=== PATIENT | female | born 1990 | race Hispanic/Latino ===

== ENCOUNTER 2020-10-28 22:32 | Inpatient (IN) | payer OTHER ==
[~2020-10-28] VITALS: Ht 149.9 cm; Wt 76.1 kg
[2020-10-28 22:48] VITALS: BP 143/103
[2020-10-28] MEDS ORDERED: PRENTAB9 PO (22:55)
[2020-10-28 23:13] VITALS: BP 143/105
[2020-10-28] MEDS ORDERED: OXYTOCIN DRIP 30 UNITS in IV 1 EA IV PRN (23:15)
[2020-10-28] MEDS ORDERED: CARBOPROST TROMETHAMINE 250 MCG/ML AMP IM PRN (23:15)
[2020-10-28] MEDS ORDERED: BUTORPHANOL 2 MG/ML INJ (J0595) IV PRN (23:15)
[2020-10-28] MEDS ORDERED: LIDOCAINE 1% MDV 20ML VIAL INFIL PRN (23:15)
[2020-10-28] MEDS ORDERED: LR 1,000 ML IV SCH (23:15)
[2020-10-28] MEDS ORDERED: TRANEXAMIC ACID INJection 1,000 MG in NS 100 ML IV PRN (23:15)
[2020-10-28] MEDS ORDERED: PROMETHAZINE INJ 25 MG/ML VIAL (J2550) IV PRN (23:15)
[2020-10-28 23:25] LABS: HEMATOCRIT 36.3 % (36.0-47.0); HEMOGLOBIN 12.5 g/dl (12.0-15.5); MEAN CORPUSCULAR HEMOGLOBIN 30.4 pg (27.0-33.0); MEAN CORPUSCULAR HGB CONC 34.4 g/dl (32.0-36.5); MEAN CORPUSCULAR VOLUME 88.3 fl (80.0-96.0); PLATELET COUNT, AUTOMATED 234 10^3/uL (150-450); RED BLOOD COUNT 4.11 10^6/uL (4.00-5.40); WHITE BLOOD COUNT 5.6 10^3/uL (4.0-10.0)
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
--- NOTE | 2020-10-29 01:35 | IPNPDOC ---
Obstetrical Progress Note Date of Service Oct 29, 2020 Subjective 30yo at 40w5d by 1 US, admitted in labor. Declining epidural for pain management. S/p 1 dose IV pain meds. Objective Vital Signs Date Time Temp Pulse Resp B/P (MAP) Pulse Ox O2 Delivery O2 Flow Rate FiO2 10/29/20 00:27 18 10/28/20 23:38 20 10/28/20 23:13 92 143/105 (118) 10/28/20 22:48 98 18 143/103 (116) Laboratory Tests 10/28/20 23:19: White Blood Count 5.6, Red Blood Count 4.11, Hemoglobin 12.5, Hematocrit 36.3, Mean Corpuscular Volume 88.3, Mean Corpuscular Hemoglobin 30.4, Mean Corpuscular Hemoglobin Concent 34.4, Red Cell Distribution Width 12.2, Platelet Count 234, Nucleated Red Blood Cells % (auto) 0.0, Syphilis Serology [Pending] Current Medications Medications (Trade) Dose Ordered Sig/Wili Route PRN Reason Start Time Stop Time Status Last Admin Dose Admin Butorphanol Tartrate (Stadol) 2 mg Q4HP PRN IV CONTRACTION 10/28/20 23:15 10/28/20 23:38 2 MG Promethazine HCl (PHENERGAN INJection) 12.5 mg Q4HP PRN IV CONTRACTION PAIN 10/28/20 23:15 10/28/20 23:38 12.5 MG Assessment Heart Rate (FHR): 130 (mod variability, +accels, no decels) Heart Rate Tracing: Category I Tocometer Contractions: Yes Frequency: regular, every 1-3 min. Duration: less than 60 seconds Strength: palpated as strong Sterile Vaginal Examination Dilation: 9 cm Effacement (%): 100% Station: 0 Assessment and Plan Status: Reassuring Group B Streptococcus: Negative Additional Comments 30yo at 40w5d in active labor -Continues to decline epidural for pain management. SVE ant lip/100/0, offered AROM - pt in agreement with plan. AROM at 0125, clear fluid noted. Continue expectant management, anticipate vaginal delivery. FABIENNE TORRES M.D. Oct 29, 2020 01:35
[2020-10-29] MEDS ORDERED: DIBUCAINE 1% OINTMENT 30GM TOP PRN (03:00)
[2020-10-29] MEDS ORDERED: DOCUSATE SODIUM 100MG CAPSULE PO PRN (03:00)
[2020-10-29] MEDS ORDERED: MEASLES,MUMPS,RUBELLA VACCINE INJ (MMR-II) (90707) SC SCH (03:00)
[2020-10-29] MEDS ORDERED: METHYLERGONOVINE MALEATE 0.2 MG TAB PO PRN (03:00)
[2020-10-29] MEDS ORDERED: ACETAMINOPHEN TAB 650MG DOSE (2X325MG) PO PRN (03:00)
--- NOTE | 2020-10-29 03:09 | DNPDOC ---
[facility] Delivery Note Delivery Note DATE OF DELIVERY: 10/29/2020 PREDELIVERY DIAGNOSIS: 40weeks 5 days gestation POST DELIVERY DIAGNOSIS: Delivered. PROCEDURE: Spontaneous vaginal delivery LAN/WAN ENGINEER: Dr. Torres ANESTHESIA: None ESTIMATED BLOOD LOSS: 100 mL. FINDINGS: 7 pound 5 ounce female , Score 9/9 DELIVERY SUMMARY: Patient is a 30-year-old 3 now para 2011 who was admitted to labor and delivery for active labor. AROM was performed at 8cm with clear fluid noted, pt progressed to complete with head at the perineum. With excellent pushing effort, head delivered AMBROSIO and restituted to LOT. Anterior shoulder then delivered without difficulty, followed by remainder of body. Female infant noted to be spontaneously crying and moving all extremities. Loose body cord noted and reduced, placed on mother's c hest. Delayed cord clamping performed for 60 seconds. Placenta delivered intact. Perineum inspected with no lacerations noted. EBL 100cc. Mom and baby both stable immediately . FABIENNE TORRES M.D. Oct 29, 2020 03:09
[2020-10-29] MEDS: IBUPROFEN 800 MG TAB PO PRN ×2 (03:19→11:02)
[2020-10-29 05:41] VITALS: BP 111/53
[2020-10-29] MEDS: PRENATAL VITAMINS CHEWABLE TABLET PO SCH (08:12)
[2020-10-29 18:00] VITALS: BP 111/59
[2020-10-30] MEDS: IBUPROFEN 800 MG TAB PO PRN (02:41)
[2020-10-30 05:22] VITALS: BP 114/59
[2020-10-30] MEDS ORDERED: ACET1TAB55 PO (06:56)
[2020-10-30] MEDS ORDERED: IBUP80TA PO (06:56)
--- NOTE | 2020-10-30 06:59 | DS.PDOC ---
Discharge Summary General Date of Admission Oct 28, 2020 at 23:09 Date of Discharge October 30, 2020 Discharge Summary HOSPITAL COURSE: Ms. Hill is a 30 yo G3 now P2 who underwent an uncomplicated in the early childhood hours of [id number] after being admitted for active labor. Her course was unremarkable. On her day of discharge she met all appropriate discharge criteria. She was ambulating, voiding, tolerating a regular diet, and had minimal lochia. DISCHARGE MEDICATIONS: Please see below. ALLERGIES: Please see below. PHYSICAL EXAMINATION ON DISCHARGE: VITAL SIGNS: Please see below. GENERAL: AAOX3, NAD ABDOMINAL EXAMINATION: Fundus firm at U-2. No fundal tenderness EXTREMITIES: No edema PSYCHIATRIC EXAMINATION: Affect appropriate LABORATORY DATA: Please see below. ACTIVITY: Pelvic rest for 6 weeks DIET: Regular DISCHARGE PLAN: Discharge home DISPOSITION: Discharge home on [id number] DISCHARGE INSTRUCTIONS: 1. Nothing in the vagina for 6 weeks ITEMS TO FOLLOWUP ON ON OUTPATIENT: 1. Call to schedule a visit for 6 weeks post delivery DISCHARGE CONDITION: Stable. TIME SPENT ON DISCHARGE: Greater than 20 minutes. Arash Harris DO Vital Signs/I&Os Vital Signs Date Time Temp Pulse Resp B/P (MAP) Pulse Ox O2 Delivery O2 Flow Rate FiO2 10/30/20 05:22 98.9 76 18 114/59 (77) 98 Room Air Discharge Medications Scheduled No.137/Iron/Folic Acd ( Vitamin Tablet) 1 Each Tablet, 1 TAB PO DAILY, (Reported) Scheduled PRN Acetaminophen (Acetaminophen) 325 Mg Tablet, 650 MG PO Q4HP PRN for PAIN LEVEL 1-5 Ibuprofen (Ibuprofen) 800 Mg Tablet, 800 MG PO Q8HP PRN for PAIN LEVEL 6-10 Allergies Coded Allergies: No Known Allergies (Unverified , 10/28/20) ARASH HARRIS DO Oct 30, 2020 06:59
[2020-10-30] MEDS: PRENATAL VITAMINS CHEWABLE TABLET PO SCH (09:00)
== END 2020-10-30 13:28 | disposition home or self-care (01) | DRG 807 ==
LOC: M LDO 22:32 → M LDI 23:09 → M OBS 10-29 04:50
PROVIDERS: ADMIT Obstetrics & Gynecology; ATTEND Obstetrics & Gynecology
PROC: 10E0XZZ Delivery of Products of Conception, External Approach (ICD-10-PCS; principal; 2020-10-29)
PROC: 10907ZC Drainage of Amniotic Fluid, Therapeutic from Products of Conception, Via Natural or Artificial Opening (ICD-10-PCS; 2020-10-29)
DX: O48.0 Post-term pregnancy (principal); Z37.0 Single live birth; Z3A.40 40 weeks gestation of pregnancy; O69.2XX0 Labor and delivery complicated by other cord entanglement, with compression, not applicable or unspecified